=== PATIENT | male | born 1925 | race Asian ===

== ENCOUNTER 2017-03-19 11:29 | Emergency (ER) | payer OTHER, MEDICAID ==
[~2017-03-19] VITALS: Ht 160 cm; Wt 59.0 kg
[2017-03-19 11:29] VITALS: BP_SYST 98
== END 2017-03-19 12:56 | disposition home or self-care (01) ==
LOC: SED 11:29
DX: S01.412D Laceration without foreign body of left cheek and temporomandibular area, subsequent encounter (principal); K21.9 Gastro-esophageal reflux disease without esophagitis; E78.00 Pure hypercholesterolemia, unspecified; Z86.73 Personal history of transient ischemic attack (TIA), and cerebral infarction without residual deficits; X58.XXXD Exposure to other specified factors, subsequent encounter
CPT/HCPCS: 99283

== ENCOUNTER 2017-03-28 17:17 | Inpatient (IN) | payer OTHER, MEDICAID ==
[~2017-03-28] VITALS: Ht 165.1 cm; Wt 73.5 kg
[2017-03-28 17:26] VITALS: BP_SYST 95
--- NOTE | 2017-03-28 17:30 | NUR ---
Pt placed to ER waiting room with family member in stable condition.
--- NOTE | 2017-03-28 17:31 | NUR ---
Herlinda siddiqi in [facility] - 03/28/17 at 1810 by NEOJ Pt placed to ER waiting room in stable condition.
--- NOTE | 2017-03-28 18:00 | NUR ---
Pt placed to ER hallway bed. Report given to Gloria.
--- NOTE | 2017-03-28 18:05 | NUR ---
Dr. Paul at bedside to assess pt.
--- NOTE | 2017-03-28 18:10 | NUR ---
Pt brought by family,A&Ox4,pt present to ER for stiches remove on Lhand, hand swollen at this time,pt afebrile, VS WNL,respirations even and unlabored.
[2017-03-28] MEDS ORDERED: ACETAMINOPHEN 325 MG TABLET PO ONE (18:45)
[2017-03-28] MEDS ORDERED: NACL 0.9% 1,000 ML IV ONE (18:45)
[2017-03-28] MEDS ORDERED: PIPERACILLIN/TAZO 4.5 GM in NS 100 ML IV ONE (18:45)
[2017-03-28 19:32] LABS: BASOPHILS # (AUTO) 0.1 K/uL (0.0-0.2); BASOPHILS % (AUTO) 1.3 % (0.0-2.0); EOSINOPHILS # (AUTO) 0.2 K/uL (0.0-0.4); EOSINOPHILS % (AUTO) 4.3 % (0.0-4.0); HEMATOCRIT 35.5 % (36-54); HEMOGLOBIN 11.8 g/dL (14.0-18.0); LYMPHOCYTES # (AUTO) 1.3 K/uL (1.0-5.5); LYMPHOCYTES % (AUTO) 26.2 % (20.5-51.5); MEAN CORPUSCULAR HEMOGLOBIN 33 pg (27-31); MEAN CORPUSCULAR HGB CONC 33 % (32-36); MEAN CORPUSCULAR VOLUME 98 fL (79.0-98.0); MONOCYTES # (AUTO) 0.6 K/uL (0.0-1.0); MONOCYTES % (AUTO) 11.6 % (1.7-9.3); NEUTROPHILS # (AUTO) 2.9 K/uL (1.8-7.7); NEUTROPHILS % (AUTO) 56.6 % (40.0-70.0); PLATELET COUNT (AUTO) 168 K/uL (130-430); RED BLOOD CELL COUNT(AUTO) 3.63 MIL/uL (4.2-6.2); RED CELL DISTRIBUTION WIDTH 12.9 % (9.0-15.0); WHITE BLOOD COUNT (AUTO) 5.1 K/uL (4.8-10.8)
[2017-03-28 19:34] LABS: ANION GAP 5 (5-15); CALCIUM 8.8 mg/dL (8.4-11.0); CHLORIDE 105 mmol/L (98-107); GLUCOSE 145 mg/dL (70-99); POTASSIUM 3.7 mmol/L (3.5-5.1); SODIUM SERUM 139 mmol/L (136-145); UREA NITROGEN, BLOOD 22 mg/dL (8-21)
[2017-03-28 19:41] LABS: PROTHROMBIN TIME 10.9 SECS (9.5-12.5)
[2017-03-28] MEDS ORDERED: FURO40TA5 PO (19:48)
[2017-03-28] MEDS ORDERED: SAXA2.5T PO (19:48)
[2017-03-28] MEDS ORDERED: ROSU40TA PO (19:49)
[2017-03-28] MEDS ORDERED: DONE5TAB3 PO (19:55)
[2017-03-28] MEDS ORDERED: HYDR-1189 PO (19:55)
[2017-03-28] MEDS ORDERED: ASPI1CPM6 PO (19:55)
[2017-03-28] MEDS ORDERED: BETA60LO4 TP (19:55)
[2017-03-28] MEDS ORDERED: POTA15TA11 PO (20:00)
[2017-03-28] MEDS ORDERED: AMOX-423 PO (20:00)
[2017-03-28] MEDS ORDERED: PRO40 PO (20:00)
[2017-03-28] MEDS ORDERED: METO-290 PO (20:00)
[2017-03-28] MEDS ORDERED: EZET10TA PO (20:00)
[2017-03-28] MEDS ORDERED: DEXTROSE 50% JECT 50 ML DISP.SYRIN IVP PRN (21:15)
[2017-03-28] MEDS ORDERED: ACETAMINOPHEN 325 MG TABLET PO PRN (21:15)
[2017-03-28] MEDS: PIPERACILLIN/TAZO 3.375/DEX-IS 50 ML IV SCH (21:15)
[2017-03-28] MEDS ORDERED: MORPHINE 2 MG/ML INJ. SYRINGE IVP PRN (21:15)
[2017-03-28] MEDS ORDERED: HYDROcodone/ACETAMIN 5-325 MG TAB (NORCO/ VICODIN) PO PRN (21:15)
--- NOTE | 2017-03-28 21:40 | NUR ---
ADMISSION NOTE [facility] Jacky. Patient admitted with diagnosis of Left Hand Cellulitis. Patient is awake, alert, oriented X 3 but unable to speak and understand jordanian well. Left hand swollen. No indication of discomfort. Call light within reach. Will continue to monitor.
--- NOTE | 2017-03-28 21:50 | NUR ---
Admission Note Received patient from ER with diagnosis of CELLULITIS OF LEFT HAND. Initial Plan of Care discussed-patient verbalized understanding.Oriented to room, call light, pain management and safety. Patient is non Honduran speaking. Safety measures are in place. Report taking from ER nurse Chirsten.
--- NOTE | 2017-03-28 21:59 | NUR ---
Patient will be admitted to care of Dr Gamboa . Admitted to Medsurg unit. Will go to room 113B. Belongings list completed. Summary report printed. Report will be given at bedside.
[2017-03-28] MEDS ORDERED: PIPERACILLIN/TAZOBACTAM 3.375 GM/VIAL (ZOSYN) IV ONE (22:32)
[2017-03-28] MEDS ORDERED: VANCOMYCIN HCL 1000 MG/VIAL IV ONE (22:33)
--- NOTE | 2017-03-28 22:37 | NUR ---
PATIENT NEEDS BLUE SENIOR PATROL AGENT PHONE WAS USED TO COMMUNICATE WITH PATIENT. PER SENIOR PATROL AGENT, PATIENT IS HAS NO HEARING IN RIGHT EAR AND LEFT HEARING IN LEFT EAR IS LIMITED. SENIOR PATROL AGENT COULD NOT TRANSLATE, PATIENT STATED TO SENIOR PATROL AGENT THAT HE COULD NOT HEAR HIM. WILL CALL FAMILY FOR INFORMATION.
[2017-03-28] MEDS ORDERED: VANCOMYCIN HCL 750 MG in NS 250 ML IV ONE (23:00)
--- NOTE | 2017-03-28 23:09 | NUR ---
PATIENT CARE PATIENT WAS ASSISTED TO THE RESTROOM AND BACK INTO BED. GAIT IS STEADY. PATIENT USES A CANE FOR ASSISTANCE. PATIENT IS IN BED RESTING COMFORTABLY.
[2017-03-28 23:29] VITALS: BP_SYST 121
--- NOTE | 2017-03-28 23:55 | NUR ---
COMMUNICATION WITH FAMILY SPOKE TO PATIENTS SON AND [id number] FOR HISTORY ABOUT PATIENT. INFORMATION WAS PROVIDED TO THE BEST OF THEIR ABILITY. BOTH SON AND [id number] WALLISIAN IS LIMITED. [id number] STATED THAT THEY DO NOT HAVE A PREFERRED PHARMACY, BECAUSE THEY ARE NEW [place] THE ARE[place]. FAMILY WAS INFORMED TO FIND A PHARMACY BEFORE PATIENT ARRIVES HOME.
[2017-03-29 00:25] VITALS: BP_SYST 122
--- NOTE | 2017-03-29 00:53 | NUR ---
CONSULT: CONSULT CALLED FOR DR. SAWANT I SPOKE WITH FADI PINA REASON FOR CONSULT: LEFT HAND CELLULITIS REQUESTING DR: DR. ESTEPHANIA PEDRAZA I CALLED [phone]
[2017-03-29] MEDS: PIPERACILLIN/TAZO 3.375/DEX-IS 50 ML IV SCH ×4 (01:17→17:16)
--- NOTE | 2017-03-29 02:41 | NUR ---
ROUNDS PATIENT IS IN BED SLEEPING. NO SIGNS OF DISTRESS. BREATHING IS NON LABORED. CALL LIGHT IS WITHIN REACH. BED ALARM IS ON. WILL CONTINUE TO MONITOR.
[2017-03-29 04:06] VITALS: BP_SYST 124
--- NOTE | 2017-03-29 04:10 | NUR ---
PATIENT CARE PATIENT WAS ASSISTED TO THE RESTROOM AND BACK INTO BED. GAIT IS STEADY. PATIENT USES CANE. PATIENT IS IN BED RESTING COMFORTABLY. NO SIGNS OF DISTRESS. BREATHING IS NON LABORED. BED ALARM IS ON. CALL LIGHT IS WITHIN REACH. WILL CONTINUE TO MONITOR.
--- NOTE | 2017-03-29 05:40 | NUR ---
PATIENT CARE PATIENT WAS ASSISTED TO THE RESTROOM AND BACK INTO BED. CALL LIGHT IS WITHIN REACH. BED ALARM IS ON. WILL CONTINUE TO MONITOR.
--- NOTE | 2017-03-29 06:51 | NUR ---
CLOSING NOTES PATIENT IS SITTING UP IN A CHAIR GAZING OUT THE WINDOW. PATIENT WAS GIVEN A BLANKET AND WATER. SAFETY MEASURES ARE IN PLACE. IV IS PATENT. WILL ENDORSE ALL CARE TO THE MORNING NURSE.
[2017-03-29 08:00] VITALS: BP_SYST 125
--- NOTE | 2017-03-29 08:00 | NUR ---
OPENING NOTES, RECEIVED PT IN BED, NO S/S PAIN , PT IS AAOX4 (PER FAMILY). PT IS MANDARIN SPEAKING WITH MINIMAL LITHUANIAN , BREATHING EVEN AND UNLABORED. NO SOB, NO DISTRESS. IV ON R FA #22 INTACT AND PATENT. NO INFILTRATION NO INFLAMMATION. CALL LIGHT IN EASY REACH. BED IN LOWEST POSITION. BED ALARM ON. WILL CONT TO MONITOR.
[2017-03-29] MEDS: METOCLOPRAMIDE HCL 10 MG TABLET PO SCH ×2 (08:04→17:15)
[2017-03-29] MEDS: ROSUVASTATIN 40 MG PO SCH (09:00)
[2017-03-29] MEDS: PANTOPRAZOLE SODIUM 40 MG TAB PO SCH (09:27)
[2017-03-29] MEDS: ASPIRIN PO SCH ×2 (09:27→20:13)
[2017-03-29] MEDS: FUROSEMIDE 40 MG TABLET PO SCH (09:27)
[2017-03-29] MEDS: DIPYRIDAMOLE PO SCH ×2 (09:27→20:13)
--- NOTE | 2017-03-29 10:00 | NUR ---
OPENING NOTES, PATIENT RESTING IN BED. ALERT/ AWAKE. BREATHING EVEN AND UNLABORED. NO SOB, NO DISTRESS. NO S/S PAIN THIS TIME. CALL LIGHT IN EASY REACH. BED IN LOWEST POSITION. BED ALARM ON. WILL CONT TO MONITOR. Addendum: 03/29/17 at 1105 by Ga Contreras RN TITLE SHOULD BE ROUNDING NOTES
--- NOTE | 2017-03-29 12:00 | NUR ---
rounding notes, pt sitting in chair. no sob, no distress, no c/o pain. dtr in law at bedside. call light in reach and bed in lowest position. will cont to monitor.
[2017-03-29 12:01] VITALS: BP_SYST 129
--- NOTE | 2017-03-29 16:00 | NUR ---
rounding notes. pt in bed, resting comfortably, no s/s of pain. no sob, no distress. call light in reach , bed in lowest position. will cont to monitor.
[2017-03-29 16:32] VITALS: BP_SYST 141
--- NOTE | 2017-03-29 18:52 | NUR ---
closing notes, pt remained alert and oriented x4, no sob, no distress, pt ambulates to bathroom with cane. all meds offered and taken by pt. iv access intact. no untoward incident today. will endorse to night nurse.
[2017-03-29 19:57] VITALS: BP_SYST 130
--- NOTE | 2017-03-29 19:59 | NUR ---
OPENING NOTES PATIENT IS AWAKE AND ALERT. VITAL SIGNS ARE STABLE. NO SIGNS OF DISTRESS. BREATHING IS NON LABORED. PATIENT IS NOT TUNISIAN SPEAKING. CALL LIGHT IS WITHIN REACH. BED ALARM IS ON. WILL CONTINUE TO MEET PATIENTS NEEDS.
[2017-03-29] MEDS: EZETIMIBE 10 MG TABLET PO SCH (20:13)
[2017-03-29] MEDS: DONEPEZIL HCL 5 MG TABLET (ARICEPT) PO SCH (20:13)
--- NOTE | 2017-03-29 21:15 | NUR ---
PATIENT CARE PATIENT WAS ASSISTED TO THE RESTROOM AND BACK INTO BED. BED ALARM IS ON. CALL LIGHT IS WITHIN REACH. WILL CONTINUE TO MONITOR.
[2017-03-29] MEDS: VANCOMYCIN HCL 750 MG in NS 250 ML IV SCH (22:52)
--- NOTE | 2017-03-30 | NUR ---
ROUNDS PATIENT IS IN BED SLEEPING. NO SIGNS OF DISTRESS. BREATHING IS NON LABORED. BED ALARM IS ON. SAFETY MEASURES ARE IN PLACE. WILL CONTINUE TO MONITOR.
[2017-03-30 00:03] VITALS: BP_SYST 144
--- NOTE | 2017-03-30 00:49 | NUR ---
PATIENT REFUSED ACCU CHECK WHEN BEGINNING TO ADMINISTER ACCU CHECK, PATIENT SHOOK HIS HEAD AND SAID, " NO, NO." PATIENT STATED SOMETHING IN CANTONESE. PATIENT IS NON KHMER SPEAKING AND DID NOT UNDERSTAND PATIENT EDUCATION.
[2017-03-30] MEDS: AMPICILLIN SODIUM/SULBACTAM NA 1.5 GM in NS 50 ML IV SCH ×4 (00:53→18:07)
--- NOTE | 2017-03-30 03:30 | NUR ---
ROUNDS PATIENT IS IN BED SLEEPING. BREATHING IS NON LABORED. NO SIGNS OF DISTRESS. CALL LIGHT IS WITHIN REACH. BED ALARM IS ON. WILL TO MONITOR.
[2017-03-30 04:02] VITALS: BP_SYST 121
[2017-03-30] MEDS: METOCLOPRAMIDE HCL 10 MG TABLET PO SCH ×2 (06:21→18:06)
--- NOTE | 2017-03-30 06:41 | NUR ---
CLOSING NOTES PATIENT IS IN BED RESTING COMFORTABLY. NO SIGNS OF DISTRESS. BREATHING IS NON LABORED. IV IS PATENT. CALL LIGHT IS WITHIN REACH. BED ALARM IS ON. CANE IS AT BEDSIDE. WILL ENDORSE ALL CARE TO THE MORNING NURSE.
[2017-03-30 08:00] VITALS: BP_SYST 85
--- NOTE | 2017-03-30 08:00 | NUR ---
OPENING NOTES, RECEIVED PT IN BED, NO S/S PAIN , PT IS AAOX4 (PER FAMILY). PT IS MANDARIN SPEAKING WITH MINIMAL OCCITAN , BREATHING EVEN AND UNLABORED. NO SOB. IV ON R FA #22 INTACT AND PATENT. NO INFILTRATION NO INFLAMMATION. AM BP LOW AT 85/54, NO S/SX OF DISTRESS OR PAIN. CALL LIGHT IN EASY REACH. BED IN LOWEST POSITION. BED ALARM ON. WILL CONT TO MONITOR.
[2017-03-30] MEDS: ROSUVASTATIN 40 MG PO SCH (09:00)
[2017-03-30] MEDS: FUROSEMIDE 40 MG TABLET PO SCH (09:00)
[2017-03-30] MEDS: DIPYRIDAMOLE PO SCH ×2 (09:01→21:14)
[2017-03-30] MEDS: ASPIRIN PO SCH ×2 (09:01→21:14)
[2017-03-30] MEDS: PANTOPRAZOLE SODIUM 40 MG TAB PO SCH (09:02)
--- NOTE | 2017-03-30 09:16 | NUR ---
Nutrition Update Rajesh Scale 17 noted. Pt admitted for cellulitis of L hand. Diet: regular BMI: 27 kg/m2 RD to follow per nutrition care standards.
--- NOTE | 2017-03-30 10:00 | NUR ---
ROUNDING NOTES PT IN BED, RESTING COMFORTABLY, CALL LIGHT IN EASY REACH, BED IN LOW POSITION. WILL CONT TO MONITOR.
--- NOTE | 2017-03-30 12:00 | NUR ---
ROUNDING NOTES PT IN BED, RESTING , NO S/S PAIN, CALL LIGHT IN EASY REACH, BED IN LOW POSITION. WILL CONT TO MONITOR.
[2017-03-30 12:16] VITALS: BP_SYST 110
--- NOTE | 2017-03-30 14:00 | NUR ---
ROUNDING NOTES PT IN BED, SLEEPING COMFORTABLY, IV ACCESS INTACT. CALL LIGHT IN EASY REACH, BED IN LOW POSITION. WILL CONT TO MONITOR.
--- NOTE | 2017-03-30 16:30 | NUR ---
ROUNDING NOTES PT IN BED, RESTING COMFORTABLY, CALL LIGHT IN EASY REACH, BED IN LOW POSITION. WILL CONT TO MONITOR.
[2017-03-30 17:24] VITALS: BP_SYST 121
[2017-03-30] MEDS: INSULIN REGULAR, HUMAN 100 UNITS/ML, 10 ML VIAL (novoLIN R) SUBCUT PRN (18:15)
--- NOTE | 2017-03-30 18:30 | NUR ---
CLOSING NOTES PT IN CHAIR, RESTING COMFORTABLY, NO S/S PAIN, NO DISTRESS, NO SOB, PT REMAINED AAO, NO UNTOWARD INCIDENT THIS SHIFT. PT KEPT SAFE, CALL LIGHT ALWAYS IN EASY REACH, BED IN LOWEST POSITION. WILL ENDORSE TO NIGHT RN.
--- NOTE | 2017-03-30 20:02 | NUR ---
OPENING NOTES PATIENT IS SITTING UP IN BED RESTING COMFORTABLE. NO SIGNS OF DISTRESS. BREATHING IS NON LABORED. VITAL SIGNS ARE STABLE. PATIENT HAS NO COMPLAINTS OF PAIN. CALL LIGHT IS WITHIN REACH. BED ALARM IS ON. WILL CONTINUE TO MONITOR.
[2017-03-30 20:19] VITALS: BP_SYST 123
[2017-03-30] MEDS: EZETIMIBE 10 MG TABLET PO SCH (21:14)
[2017-03-30] MEDS: DONEPEZIL HCL 5 MG TABLET (ARICEPT) PO SCH (21:14)
[2017-03-30] MEDS: VANCOMYCIN HCL 750 MG in NS 250 ML IV SCH (21:15)
--- NOTE | 2017-03-30 21:40 | NUR ---
PATIENT CARE PATIENT WAS GIVEN CRANBERRY JUICE. PATIENT IS IN BED RESTING COMFORTABLE. BED ALARM IS ON. CALL LIGHT IS WITHIN REACH. WILL CONTINUE TO MONITOR.
[2017-03-31] VITALS (7 sets, daily range): BP systolic 87–134
[2017-03-31] MEDS: AMPICILLIN SODIUM/SULBACTAM NA 1.5 GM in NS 50 ML IV SCH ×5 (00:35→23:21)
--- NOTE | 2017-03-31 04:23 | NUR ---
ROUNDS PATIENT IS IN BED SLEEPING. NO SIGNS OF DISTRESS. BREATHING IS NON LABORED. SAFETY MEASURES ARE IN PLACE. CALL LIGHT IS WITHIN REACH. BED ALARM IS ON. WILL CONTINUE TO MONITOR.
[2017-03-31] MEDS: METOCLOPRAMIDE HCL 10 MG TABLET PO SCH ×2 (06:15→17:28)
--- NOTE | 2017-03-31 06:39 | NUR ---
CLOSING NOTES PATIENT IS BED SLEEPING. NO SIGNS OF DISTRESS. BREATHING IS NON LABORED. IV IS PATENT. CALL LIGHT IS WITHIN REACH. BED ALARM IS ON. ALL PATIENTS NEEDS WERE MET. WILL ENDORSE ALL CARE TO THE MORNING NURSE.
--- NOTE | 2017-03-31 08:30 | NUR ---
PATIENT ASSISTED TO ANAHI LYNCH RN.
[2017-03-31] MEDS: FUROSEMIDE 40 MG TABLET PO SCH (09:00)
[2017-03-31] MEDS: PANTOPRAZOLE SODIUM 40 MG TAB PO SCH (09:00)
[2017-03-31] MEDS: ROSUVASTATIN 40 MG PO SCH (09:00)
--- NOTE | 2017-03-31 09:00 | NUR ---
BP NOTED AT 87/49 WITH SEVERAL RECHECKS. PATIENT SEATED IN CHAIR NEAR BEDSIDE. DR BEST INFORMED OF BP AND 250ML BOLUS OF NS ORDERED AND GIVEN. HOLDING MEDICATIONS AT THIS TIME.
[2017-03-31] MEDS ORDERED: NS 250 ML IV ONE (09:45)
[2017-03-31 10:18] LABS: BASOPHILS # (AUTO) 0.1 K/uL (0.0-0.2); BASOPHILS % (AUTO) 1.6 % (0.0-2.0); EOSINOPHILS # (AUTO) 0.2 K/uL (0.0-0.4); EOSINOPHILS % (AUTO) 4.5 % (0.0-4.0); HEMATOCRIT 39.3 % (36-54); HEMOGLOBIN 13.2 g/dL (14.0-18.0); LYMPHOCYTES # (AUTO) 1.4 K/uL (1.0-5.5); LYMPHOCYTES % (AUTO) 25.6 % (20.5-51.5); MEAN CORPUSCULAR HEMOGLOBIN 33 pg (27-31); MEAN CORPUSCULAR HGB CONC 34 % (32-36); MEAN CORPUSCULAR VOLUME 97 fL (79.0-98.0); MONOCYTES # (AUTO) 0.5 K/uL (0.0-1.0); MONOCYTES % (AUTO) 9.4 % (1.7-9.3); NEUTROPHILS # (AUTO) 3.2 K/uL (1.8-7.7); NEUTROPHILS % (AUTO) 58.9 % (40.0-70.0); PLATELET COUNT (AUTO) 198 K/uL (130-430); RED BLOOD CELL COUNT(AUTO) 4.05 MIL/uL (4.2-6.2); RED CELL DISTRIBUTION WIDTH 12.3 % (9.0-15.0); WHITE BLOOD COUNT (AUTO) 5.4 K/uL (4.8-10.8)
[2017-03-31 10:35] LABS: ANION GAP 9 (5-15); CALCIUM 8.4 mg/dL (8.4-11.0); CHLORIDE 104 mmol/L (98-107); GLUCOSE 211 mg/dL (70-99); POTASSIUM 3.3 mmol/L (3.5-5.1); SODIUM SERUM 139 mmol/L (136-145); UREA NITROGEN, BLOOD 26 mg/dL (8-21)
[2017-03-31 10:39] LABS: ALANINE AMINOTRANSFERASE 22 U/L (12-78); ALBUMIN 3.6 g/dL (3.4-4.8); ASPARTATE AMINOTRANSFERASE 23 U/L (10-37); TOTAL BILIRUBIN 0.6 mg/dL (0.0-1.0); TOTAL PROTEIN, SERUM 7.1 g/dL (6.4-8.3)
--- NOTE | 2017-03-31 10:57 | NUR ---
STILL AWAITING AGGRENOX IN PYXIS FROM PHARMACY
[2017-03-31] MEDS: DIPYRIDAMOLE PO SCH ×2 (12:12→20:47)
[2017-03-31] MEDS: ASPIRIN PO SCH ×2 (12:12→20:47)
[2017-03-31] MEDS: INSULIN REGULAR, HUMAN 100 UNITS/ML, 10 ML VIAL (novoLIN R) SUBCUT PRN (14:01)
--- NOTE | 2017-03-31 14:18 | NUR ---
PATIENT PLACED BACK IN BED, LYING DOWN AFTER LUNCH. PT WAS UP IN A CHAIR THROUGHOUT THE DAY.
--- NOTE | 2017-03-31 17:18 | NUR ---
BG 80, NO COVERAGE NEEDED
[2017-03-31] MEDS: DONEPEZIL HCL 5 MG TABLET (ARICEPT) PO SCH (20:47)
[2017-03-31] MEDS: EZETIMIBE 10 MG TABLET PO SCH (20:47)
[2017-03-31] MEDS: VANCOMYCIN HCL 750 MG in NS 250 ML IV SCH (21:18)
--- NOTE | 2017-03-31 22:15 | NUR ---
CARE ENDORSED BY IRMA BURTON. PT RESTING IN BED, NO ACUTE DISTRESS. FALL RISK PRECAUTIONS IN PLACE, CALL LIGHT WITHIN REACH. BED ALARM ON. ROOM NEAR NURSES STATION.
--- NOTE | 2017-03-31 23:36 | NUR ---
BLOOD SUGAR 125 NO COVERAGE NEEDED.
--- NOTE | 2017-04-01 01:30 | NUR ---
ROUNDS PT RESTING IN BED, NO ACUTE DISTRESS NOTED, ALL NEEDS BEING MET. FALL RISK PRECAUTIONS IN PLACE, CALL LIGHT WITHIN REACH, BED ALARM ON.
--- NOTE | 2017-04-01 03:51 | NUR ---
rounds pt resting, easily arousable, no acute distress noted. all needs being met. bed alarm on, room near nurses station.
[2017-04-01] MEDS: AMPICILLIN SODIUM/SULBACTAM NA 1.5 GM in NS 50 ML IV SCH ×3 (05:35→18:00)
[2017-04-01 06:02] VITALS: BP_SYST 131
[2017-04-01] MEDS: METOCLOPRAMIDE HCL 10 MG TABLET PO SCH ×2 (06:02→17:59)
--- NOTE | 2017-04-01 06:11 | NUR ---
closing notes no acute distress noted. blood sugar 100, all needs met throughout shift, will endorse care to oncoming nurse. fall risk precautions in place, call light within reach, bed alarm on.
--- NOTE | 2017-04-01 08:00 | NUR ---
OPENING NOTE PATIENT IS AWAKE AND ALERT. CANTONESE SPEAKING BUT IN NO APPARENT DISTRESS. VITALS WNL.
[2017-04-01] MEDS: PANTOPRAZOLE SODIUM 40 MG TAB PO SCH (08:34)
[2017-04-01] MEDS: DIPYRIDAMOLE PO SCH (08:34)
[2017-04-01] MEDS: ASPIRIN PO SCH (08:34)
[2017-04-01] MEDS: FUROSEMIDE 40 MG TABLET PO SCH (08:35)
[2017-04-01 08:36] VITALS: BP_SYST 117
[2017-04-01] MEDS: ROSUVASTATIN 40 MG PO SCH (08:36)
--- NOTE | 2017-04-01 09:30 | NUR ---
MEDICATED PER ORDERS. PATIENT IS SITTING UP ON EDGE OF BED. ABLE TO AMBULATE TO RESTROOM WITH EITHER IV POLE OR CANE FOR ASSIST.
--- NOTE | 2017-04-01 10:34 | NUR ---
DC PLANNING:Called Fe dtr in law, unable to leave message dt. voice mail not available. Next called and notified the pt's son, Farhan #[phone] Rico is recommending pt. to [facility] for continuation of IV ABX. The pt. fail IV ABX out pat per md's note. Son is agreeable with the md' s recommendation to transfer the pt. to [facility]. Dr. Rico made aware, fernando Childs made aware.
[2017-04-01 11:03] LABS: BASOPHILS # (AUTO) 0.1 K/uL (0.0-0.2); BASOPHILS % (AUTO) 1.3 % (0.0-2.0); EOSINOPHILS # (AUTO) 0.3 K/uL (0.0-0.4); EOSINOPHILS % (AUTO) 3.6 % (0.0-4.0); HEMOGLOBIN 13.4 g/dL (14.0-18.0); LYMPHOCYTES % (AUTO) 28.1 % (20.5-51.5); MEAN CORPUSCULAR HEMOGLOBIN 32 pg (27-31); MEAN CORPUSCULAR HGB CONC 33 % (32-36); MEAN CORPUSCULAR VOLUME 97 fL (79.0-98.0); MONOCYTES # (AUTO) 0.5 K/uL (0.0-1.0); MONOCYTES % (AUTO) 7.5 % (1.7-9.3); NEUTROPHILS # (AUTO) 4.4 K/uL (1.8-7.7); NEUTROPHILS % (AUTO) 59.5 % (40.0-70.0); PLATELET COUNT (AUTO) 211 K/uL (130-430); RED BLOOD CELL COUNT(AUTO) 4.21 MIL/uL (4.2-6.2); RED CELL DISTRIBUTION WIDTH 12.5 % (9.0-15.0); WHITE BLOOD COUNT (AUTO) 7.3 K/uL (4.8-10.8)
[2017-04-01 11:17] LABS: ANION GAP 7 (5-15); CALCIUM 8.6 mg/dL (8.4-11.0); CHLORIDE 105 mmol/L (98-107); CREATININE 1.51 mg/dL (0.55-1.30); GLUCOSE 221 mg/dL (70-99); POTASSIUM 3.4 mmol/L (3.5-5.1); SODIUM SERUM 139 mmol/L (136-145); UREA NITROGEN, BLOOD 22 mg/dL (8-21)
[2017-04-01 11:24] LABS: ALANINE AMINOTRANSFERASE 25 U/L (12-78); ALBUMIN 3.8 g/dL (3.4-4.8); ASPARTATE AMINOTRANSFERASE 25 U/L (10-37); TOTAL BILIRUBIN 0.6 mg/dL (0.0-1.0); TOTAL PROTEIN, SERUM 7.6 g/dL (6.4-8.3)
[2017-04-01 12:04] VITALS: BP_SYST 121
--- NOTE | 2017-04-01 12:22 | NUR ---
BG 180, PATIENT ASSISTED BACK FROM RESTROOM. WILL COVER BG WHEN PATIENT HAS TRAY PATIENT TENDS TO DROP HIS BG BELOW 100 QUICKLY AFTER INSULIN.
[2017-04-01] MEDS: INSULIN REGULAR, HUMAN 100 UNITS/ML, 10 ML VIAL (novoLIN R) SUBCUT PRN (13:19)
--- NOTE | 2017-04-01 14:21 | NUR ---
DISCHARGE PLANNING DC planning for SNF. Per CM note. Faxed SNF referral to [facility] [phone] [phone]. Will follow up. Addendum: 04/01/17 at 1638 by Ethel Kwong DP Patient assigned to room 8A RN to report [phone] bed available anytime. IRMA Holt made aware. Called [facility] [phone] spoke with Jasmyn arranged S transport order picker/assembler 6pm. Placed transportation packet in nurses station.
[2017-04-01 16:07] VITALS: BP_SYST 105
[2017-04-01 17:15] VITALS: BP_SYST 100
--- NOTE | 2017-04-01 17:30 | NUR ---
report called to bunny pappas at [facility]. patient daughter si aware of transport
--- NOTE | 2017-04-01 18:11 | NUR ---
patient transported with iv, with all belongings via [facility] to [facility]. iv in place. transferred to room 8a
== END 2017-04-01 18:10 | DRG 603 ==
LOC: SED 17:17 → SMU 19:41
PROVIDERS: ADMIT Internal Medicine Hospice and Palliative Medicine; ATTEND Internal Medicine Hospice and Palliative Medicine
DX: L03.114 Cellulitis of left upper limb (principal); N17.9 Acute kidney failure, unspecified; K21.9 Gastro-esophageal reflux disease without esophagitis; I10 Essential (primary) hypertension; B96.89 Other specified bacterial agents as the cause of diseases classified elsewhere; I95.9 Hypotension, unspecified; S61.452A Open bite of left hand, initial encounter; F03.90 Unspecified dementia, unspecified severity, without behavioral disturbance, psychotic disturbance, mood disturbance, and anxiety; E78.00 Pure hypercholesterolemia, unspecified; Z86.73 Personal history of transient ischemic attack (TIA), and cerebral infarction without residual deficits; Z79.899 Other long term (current) drug therapy; Z79.82 Long term (current) use of aspirin; Y93.89 Activity, other specified; Y92.89 Other specified places as the place of occurrence of the external cause; Y99.8 Other external cause status
CPT/HCPCS: 36415; 76770; 80048; 80053; 82962; 83605; 85025; 85610-TC; 85730-TC; 87040-TC; 96365; 99285; J0295; J1815; J2543; J3370; J7030; J7040; J7050; J7060; J8597